=== PATIENT | female | born 1970 | race Caucasian/White ===

== ENCOUNTER → 2016-05-21 | Outpatient (CLI) | payer BC, OTHER ==
[~2016-05-21] MED LIST: IBUP-1427 PO; OXYC-57 PO; PRENTAB26 PO
--- NOTE | 2016-05-21 13:47 | MAMMOGRAPHY REPORT ---
ULTRASOUND OF LEFT BREAST: 05/21/2016 CLINICAL HISTORY: Callback from screening mammogram for obscured 16 mm left superior breast mass, as well as a possible other 10 mm mass seen bilaterally. COMPARISON: Comparison is made to exams dated: 01/31/2015 mammogram, 09/25/2013 mammogram, 03/21/2013 mammogram, 02/28/2013 mammogram, and 01/28/2012 mammogram - [facility]. TECHNIQUE: Real-time targeted ultrasound of the left breast was performed. FINDINGS: Real-time, high resolution targeted ultrasound was performed of the area of the partially circumscri bed and partially obscured 16 mm mass seen on the recent screening mammogram. In the left breast at 10 to 11:00, 2 cm from the nipple, there is an oval circumscribed anechoic mass which measures 1.7 x 0.8 x 1.3 cm. This corresponds with the mammographic mass and is consistent with a benign simple cyst. Targeted ultrasound was performed more laterally in the left breast at approximately 12:00, s ubareolar breast, and 6:00, in the region of the other possible mass versus normal tissue seen on on e view only. No suspicious mass or other suspicious sonographic abnormality is evident. In retrosp ect, this region appears similar compared to prior exams including the 2013, 2012, and 2011 exams, s uggesting that it is benign and represents normal fibroglandular tissue. In the left breast at 2:00 , 4 cm from the nipple, incidentally noted is an oval anechoic circumscribed mass with a thin application development intern al septation, measuring 4 mm, consistent with a benign cyst. IMPRESSION: ACR BI-RADS CATEGORY 2: BENIGN 1. Benign 1.7 cm simple cyst in the left breast at 10 to 11:00 on ultrasound, which corresponds with the new circumscribed mammographic mass. 2. No abnormality seen on ultrasound at the site of the other possible left breast mass. Additiona lly, the region appears similar on cc views compared to prior exams dating back to 2011. Findings a re benign and compatible with normal fibroglandular tissue. There is no sonographic evidence of malignancy. A 1 year screening mammogram is recommended. The p atient was verbally notified of the results. Debbie Bui M.D. /:05/21/2016 10:11:37 Evp: Debbie Bui MD, [facility] letter sent: Normal / BI-RADS Code: ACR BI-RADS Category 2: Benign
== END | disposition home or self-care (01) ==
LOC: C.MAMM 09:39
PROVIDERS: ATTEND Family Medicine
DX: N63 Unspecified lump in breast (principal); N60.02 Solitary cyst of left breast

== ENCOUNTER → 2017-07-19 | Outpatient (CLI) | payer BC ==
--- NOTE | 2017-07-20 15:16 | MAMMOGRAPHY REPORT ---
BILATERAL DIGITAL SCREENING MAMMOGRAM TOMOSYNTHESIS WITH CAD: 07/19/2017 CLINICAL HISTORY: Routine screening. Patient has no complaints. TECHNIQUE: Breast tomosynthesis in addition to standard 2D mammography was performed. Current study was also evaluated with a Computer Aided Detection (CAD) system. COMPARISON: Comparison is made to exams dated: 05/13/2016 mammogram, 01/31/2015 mammogram, 09/25/2013 mammogram, 03/21/2013 mammogram, 02/28/2013 mammogram, and 01/28/2012 mammogram - [facility]. BREAST COMPOSITION: The tissue of both breasts is heterogeneously dense, which may obscure small mas ses. FINDINGS: No suspicious mass, architectural distortion or cluster of microcalcifications is seen. A 2 cm oval circumscribed mass in the 10:00 middle one third of the left breast is slightly larger com paring to last years mammogram, the previously documented to represent a simple cyst on ultrasound. IMPRESSION: ACR BI-RADS CATEGORY 1: NEGATIVE There is no mammographic evidence of malignancy. A 1 year screening mammogram is recommended. The pa tient will receive written notification of the results. Approximately 10% of breast cancers are not detected with mammography. A negative mammographic report should not delay biopsy if a clinically suggestive mass is present. Fabiana Davis M.D. ay/:07/19/2017 15:37:27 Earring Maker: Catrina BARONE([place]ville)(Brie)(BD), [facility] letter sent: Normal 1/2 BI-RADS Code: ACR BI-RADS Category 1: Negative
== END | disposition home or self-care (01) ==
LOC: C.MAMM 10:00
PROVIDERS: ATTEND Obstetrics & Gynecology
DX: Z12.31 Encounter for screening mammogram for malignant neoplasm of breast (principal)